=== PATIENT | female | born 1985 | race African-American/Black ===

== ENCOUNTER 2020-06-22 12:31 | Inpatient (IN) ==
[2020-06-22] MEDS ORDERED: LABETALOL 100 MG TABLET ONE (12:48)
[2020-06-22] MEDS ORDERED: LABETALOL 100 MG TABLET PO ONE (12:49)
[2020-06-22] MEDS ORDERED: hydrALAZINE 20 MG/1 ML VIAL ONE (12:50)
[2020-06-22] MEDS: hydrALAZINE 20 MG/1 ML VIAL IV PRN ×2 (13:01→13:16)
[2020-06-22 13:03] LABS: Basophils # 0.1 10*3/uL (0.0-0.2); Basophils % 0.8 % (0.0-0.8); Eosinophils # 0.1 10*3/uL (0.0-0.87); Hematocrit 36.8 VOL% (35.7-47.0); Hemoglobin 11.7 GM/DL (12.0-16.0); Immature Granulocytes % 0.4 %; Immature Granulocytes Absolute 0.04 #; Lymphocytes # 4.5 10*3/uL (1.4-4.0); Lymphocytes % 42.8 % (21.3-54.2); Mean Corpuscular HGB Conc 31.8 GM/DL (32-36); Mean Platelet Volume 11.8 FL (9.6-12.0); Monocytes % 6.4 % (1.7-12.7); NRBC # 0.02 10*3/uL; Neutrophils % 48.6 % (38.7-73.9); Platelet Count 228 T/CUMM (130-400); Red Blood Count 4.28 MC/CUMM (3.8-5.5); Red Cell Distribution Width 14.7 % (9.3-17.3); White Blood Count 10.5 T/CUMM (4-12)
[2020-06-22 13:09] LABS: Bilirubin,Urine Negative (Negative); Blood, Urine Small mg/dL (Negative); Glucose,Urine (UA) Negative (Negative); Hyaline Casts,Urine 14 /LPF (0-3); Ketones,Urine Negative (Negative); Mucus,Urine Occasional /LPF (Occasional); Nitrite,Urine Negative (Negative); Protein,Urine >=500 MG/DL; RBC,Urine 71 /HPF (0-4); Squamous Epithelial Cell,Urine Occasional /HPF (0-10); Urine Appearance Slightly Hazy (Clear); Urine Color Yellow (Yellow); Urine Specific Gravity 1.019 (1.001-1.035); Urine Urobilinogen < 2.0 EU/DL (0.2-1.0); WBC,Urine 4 /HPF (0-6)
[2020-06-22] MEDS ORDERED: FAMOTIDINE 20 MG/2 ML VIAL IV ONE (13:15)
[2020-06-22] MEDS ORDERED: ePHEDrine 50 MG/ML VIAL IV PRN (13:15)
[2020-06-22] MEDS ORDERED: PROMETHAZINE 25 MG/1 ML VIAL IM ONE (13:15)
[2020-06-22] MEDS ORDERED: LACTATED RINGERS 1,000 ML IV ONE (13:15)
[2020-06-22] MEDS ORDERED: ONDANSETRON 4 MG/2 ML VIAL IV ONE (13:15)
[2020-06-22] MEDS ORDERED: ceFAZolin 2,000 MG in PREMIX 1 EACH IV ONE (13:15)
[2020-06-22] MEDS ORDERED: hydrOXYzine HCL 25 MG/1 ML VIAL IM PRN (13:15)
[2020-06-22] MEDS ORDERED: diphenhydrAMINE 50 MG/1 ML VIAL IV PRN ×2 (13:15)
[2020-06-22] MEDS ORDERED: CITRIC ACID/SODIUM CITRATE 30 ML UDCUP PO ONE (13:15)
[2020-06-22] MEDS ORDERED: MAGNESIUM SULF RIDER 100 ML IV ONE ×2 (13:16→13:20)
[2020-06-22 13:17] LABS: INR 0.9; PT Patient Result 9.8 SECS (9.8-11.9); Partial Thromboplastin Time 29.6 SECS (23.9-33.8)
[2020-06-22] MEDS ORDERED: miSOPROStoL 200 MCG TABLET ONE (13:23)
[2020-06-22] MEDS ORDERED: TRANEXAMIC ACID 1,000 MG/10 ML VIAL ONE (13:23)
[2020-06-22] MEDS ORDERED: OXYTOCIN/LR 20 UNIT/1,000 ML BAG IV ONE ×3 (13:24→14:45)
[2020-06-22] MEDS ORDERED: METHYLERGONOVINE 0.2 MG/1 ML AMP ONE (13:24)
[2020-06-22] MEDS ORDERED: CARBOPROST TROMETHAMINE 250 MCG/ML AMP IM ONE (13:24)
[2020-06-22 13:27] LABS: Eosinophils 1 % (0-10); Lymphocytes 37 % (20-55); Reactive Lymphocytes Few; Segmented Neutrophils 52 % (50-85); Total Cells Counted 100
[2020-06-22 13:28] LABS: Albumin 2.2 G/DL (3.4-5.0); Anisocytosis Slight; Bilirubin,Direct 0.14 MG/DL (0.0-0.20); Bilirubin,Total 0.6 MG/DL (0.2-1.0); Calcium 8.4 MG/DL (8.5-10.1); Hypochromasia Slight; Platelet Estimate Adequate; Polychromasia Few; Potassium 4.7 MMOL/L (3.5-5.1)
[2020-06-22] MEDS ORDERED: propofoL 200 MG/20 ML VIAL IV ONE (13:35)
[2020-06-22] MEDS ORDERED: SUCCINYLCHOLINE 200 MG/10 ML VIAL ONE (13:35)
[2020-06-22] MEDS ORDERED: fentaNYL 100 MCG/2 ML VIAL ONE (13:36)
[2020-06-22] MEDS ORDERED: MIDAZOLAM 2 MG/2 ML VIAL ONE (13:36)
[2020-06-22] MEDS ORDERED: ONDANSETRON 4 MG/2 ML VIAL ONE (13:43)
[2020-06-22] MEDS ORDERED: FUROSEMIDE 20 MG/2 ML VIAL ONE ×2 (13:44)
[2020-06-22] MEDS ORDERED: ceFAZolin 1,000 MG VIAL ONE (13:54)
[2020-06-22] MEDS ORDERED: SEVOFLURANE 1 UNIT/15 MINUTE INH ONE (13:54)
[2020-06-22] MEDS ORDERED: PHENYLEPHRINE 1 MG/10 ML SYRINGE IV ONE (13:55)
[2020-06-22 14:00] LABS: Cord Arterial Blood HCO3 20.8 MMOL/L; Cord Venous Blood PCO2 45.8 MMHG; Cord Venous Blood PO2 22.3
[2020-06-22] MEDS ORDERED: ACETAMINOPHEN 1,000 MG/100 ML VIAL IV ONE (14:00)
[2020-06-22] MEDS ORDERED: WITCH HAZEL PADS 100/JAR TOP PRN (14:24)
[2020-06-22] MEDS ORDERED: DIPH/TET/ACEL PERT BOOSTER VACCINE 0.5 ML VIAL IM ONE (14:24)
[2020-06-22] MEDS ORDERED: RHO(D) IMMUNE GLOBULIN 300 MCG SYRINGE IM ONE (14:24)
[2020-06-22] MEDS ORDERED: HYDROCORTISONE 2.5% RECTAL CREAM 30 GM TUBE TOP PRN (14:24)
[2020-06-22] MEDS ORDERED: IBUPROFEN 800 MG TABLET PO PRN (14:24)
[2020-06-22] MEDS ORDERED: ACETAMINOPHEN 325 MG TABLET PO PRN (14:24)
[2020-06-22] MEDS ORDERED: BENZOCAINE 20%/MENTHOL 0.5% SPRAY 56 GM CAN TOP PRN (14:24)
[2020-06-22] MEDS ORDERED: ONDANSETRON 4 MG/2 ML VIAL IV PRN (14:24)
[2020-06-22] MEDS ORDERED: LANOLIN 50% CREAM 0.3 OZ TUBE TOP PRN (14:24)
[2020-06-22] MEDS ORDERED: BISACODYL 10 MG SUPP RECTAL PRN (14:24)
[2020-06-22] MEDS ORDERED: MEASLES/MUMPS/RUBELLA VACCINE 0.5 ML VIAL SUBCUT ONE (14:24)
[2020-06-22 14:27] LABS: Barbiturates Screen,Urine Negative (Negative); Benzodiazepines Screen,Urine Negative (Negative); Cannabinoid Screen,Urine Negative (Negative); Opiate Screen,Urine Negative (Negative); Phencyclidine Screen,Urine Negative (Negative)
[2020-06-22] MEDS ORDERED: KETOROLAC 60 MG/2 ML VIAL IM PRN (14:44)
[2020-06-22] MEDS ORDERED: KETOROLAC 30 MG/1 ML VIAL IV PRN (14:50)
[2020-06-22] MEDS ORDERED: MAGNESIUM SULF DRIP 40 GM/1,000 ML ML IV ONE (14:54)
[2020-06-22] MEDS ORDERED: FUROSEMIDE 40 MG/4 ML VIAL IV ONE (15:07)
[2020-06-22] MEDS ORDERED: METOPROLOL TARTRATE 5 MG/5 ML VIAL IV ONE (15:08)
[2020-06-22] MEDS: MEPERIDINE 50 MG/1 ML VIAL IV PRN ×2 (15:20→20:32)
[2020-06-22] MEDS ORDERED: MAGNESIUM SULF DRIP 40 GM/1,000 ML ML IV SCH (15:30)
[2020-06-22 15:42] LABS: Basophils # 0.1 10*3/uL (0.0-0.2); Basophils % 0.8 % (0.0-0.8); Eosinophils # 0.1 10*3/uL (0.0-0.87); Eosinophils % 0.6 % (0.00-10.9); Hemoglobin 11.8 GM/DL (12.0-16.0); Immature Granulocytes % 1.3 %; Immature Granulocytes Absolute 0.19 #; Lymphocytes # 4.1 10*3/uL (1.4-4.0); Lymphocytes % 27.9 % (21.3-54.2); Mean Corpuscular HGB Conc 32.8 GM/DL (32-36); Mean Corpuscular Volume 86.5 FL (87-102); Mean Platelet Volume 12.3 FL (9.6-12.0); Monocytes % 4.2 % (1.7-12.7); NRBC # 0.03 10*3/uL; Neutrophils % 65.2 % (38.7-73.9); Platelet Count 207 T/CUMM (130-400); Red Blood Count 4.16 MC/CUMM (3.8-5.5); Red Cell Distribution Width 14.8 % (9.3-17.3); White Blood Count 14.6 T/CUMM (4-12)
[2020-06-22] MEDS: niCARdipine INJ 25 MG in SODIUM CHLORIDE 0.9% 240 ML IV PRN ×2 (15:42→22:13)
[2020-06-22] MEDS: cloNIDine 0.1 MG TABLET PO SCH ×2 (15:45→23:22)
[2020-06-22] MEDS: METOPROLOL TARTRATE 50 MG TABLET PO SCH ×2 (15:51→20:42)
[2020-06-22 15:59] LABS: Calcium 8.5 MG/DL (8.5-10.1); Osmolality,Calculated 266.2 MOS/KG (273-304)
[2020-06-22] MEDS: FAMOTIDINE 20 MG/2 ML VIAL IV SCH (16:23)
[2020-06-22 16:29] LABS: Anisocytosis Slight; Eosinophils 1 % (0-10); Hypochromasia Slight; Lymphocytes 29 % (20-55); Nucleated Red Blood Cells 1 (0-5); Platelet Estimate Adequate; Polychromasia Few; Segmented Neutrophils 67 % (50-85); Total Cells Counted 100
[2020-06-22] MEDS: DOCUSATE SODIUM 100 MG CAPSULE PO SCH (20:41)
[2020-06-23] MEDS: LACTATED RINGERS 1,000 ML IV SCH ×3 (00:50→08:11)
[2020-06-23] MEDS: MEPERIDINE 50 MG/1 ML VIAL IV PRN ×2 (00:53→05:00)
[2020-06-23] MEDS: FAMOTIDINE 20 MG/2 ML VIAL IV SCH ×2 (03:40→15:41)
[2020-06-23 04:02] LABS: Basophils # 0.1 10*3/uL (0.0-0.2); Basophils % 0.5 % (0.0-0.8); Eosinophils % 0.3 % (0.00-10.9); Hematocrit 32.5 VOL% (35.7-47.0); Hemoglobin 10.2 GM/DL (12.0-16.0); Immature Granulocytes % 0.4 %; Immature Granulocytes Absolute 0.04 #; Lymphocytes % 40.1 % (21.3-54.2); Mean Corpuscular HGB Conc 31.4 GM/DL (32-36); Mean Corpuscular Volume 87.6 FL (87-102); Mean Platelet Volume 11.7 FL (9.6-12.0); Monocytes % 7.3 % (1.7-12.7); Neutrophils % 51.4 % (38.7-73.9); Platelet Count 182 T/CUMM (130-400); Red Blood Count 3.71 MC/CUMM (3.8-5.5); Red Cell Distribution Width 14.6 % (9.3-17.3); White Blood Count 9.9 T/CUMM (4-12)
[2020-06-23 04:15] LABS: Calcium 7.2 MG/DL (8.5-10.1); Osmolality,Calculated 272.7 MOS/KG (273-304); Potassium 3.9 MMOL/L (3.5-5.1)
[2020-06-23 04:21] LABS: Hypochromasia Slight; Platelet Estimate Adequate
[2020-06-23] MEDS: cloNIDine 0.1 MG TABLET PO SCH ×3 (08:10→23:46)
[2020-06-23] MEDS: DOCUSATE SODIUM 100 MG CAPSULE PO SCH ×2 (08:10→21:27)
[2020-06-23] MEDS: METOPROLOL TARTRATE 50 MG TABLET PO SCH ×2 (08:10→21:27)
[2020-06-23] MEDS: hydrALAZINE 20 MG/1 ML VIAL IV PRN (12:02)
[2020-06-23] MEDS: oxyCODONE/ACETAMINOPHEN 5-325 MG TABLET PO PRN (12:33)
[2020-06-24] MEDS: FAMOTIDINE 20 MG/2 ML VIAL IV SCH ×2 (04:09→21:06)
[2020-06-24] MEDS: oxyCODONE/ACETAMINOPHEN 5-325 MG TABLET PO PRN ×2 (05:49→23:14)
[2020-06-24] MEDS: cloNIDine 0.1 MG TABLET PO SCH ×3 (08:30→23:11)
[2020-06-24] MEDS: DOCUSATE SODIUM 100 MG CAPSULE PO SCH ×2 (09:41→21:04)
[2020-06-24] MEDS: MULTIVITAMIN (PRENATAL) TABLET PO SCH (09:41)
[2020-06-24] MEDS: METOPROLOL TARTRATE 50 MG TABLET PO SCH ×2 (09:41→21:05)
[2020-06-24] MEDS: MAGNESIUM HYDROXIDE SUSP 30 ML UDCUP PO PRN ×2 (09:42→21:04)
[2020-06-24] MEDS: SIMETHICONE CHEW 80 MG TABLET PO PRN (09:42)
[2020-06-24] MEDS: hydrALAZINE 20 MG/1 ML VIAL IV PRN (17:14)
[2020-06-25] MEDS: hydrALAZINE 20 MG/1 ML VIAL IV PRN (00:18)
[2020-06-25 06:41] LABS: Basophils # 0.1 10*3/uL (0.0-0.2); Basophils % 0.7 % (0.0-0.8); Eosinophils # 0.4 10*3/uL (0.0-0.87); Eosinophils % 4.3 % (0.00-10.9); Hematocrit 32.5 VOL% (35.7-47.0); Hemoglobin 10.1 GM/DL (12.0-16.0); Immature Granulocytes % 0.3 %; Immature Granulocytes Absolute 0.03 #; Lymphocytes # 4.1 10*3/uL (1.4-4.0); Lymphocytes % 45.5 % (21.3-54.2); Mean Corpuscular HGB Conc 31.1 GM/DL (32-36); Mean Corpuscular Volume 88.8 FL (87-102); Mean Platelet Volume 11.1 FL (9.6-12.0); Monocytes % 8.6 % (1.7-12.7); Neutrophils % 40.6 % (38.7-73.9); Platelet Count 184 T/CUMM (130-400); Red Blood Count 3.66 MC/CUMM (3.8-5.5); Red Cell Distribution Width 15.2 % (9.3-17.3)
[2020-06-25] MEDS: cloNIDine 0.1 MG TABLET PO SCH (06:55)
[2020-06-25 06:59] LABS: Hypochromasia 1+; Microcytosis 1+; Platelet Estimate Adequate
[2020-06-25 07:04] LABS: Calcium 8.5 MG/DL (8.5-10.1); Osmolality,Calculated 278.4 MOS/KG (273-304); Potassium 4.4 MMOL/L (3.5-5.1)
[2020-06-25] MEDS: DOCUSATE SODIUM 100 MG CAPSULE PO SCH ×2 (08:24→20:08)
[2020-06-25] MEDS: MULTIVITAMIN (PRENATAL) TABLET PO SCH (08:28)
[2020-06-25] MEDS: METOPROLOL TARTRATE 25 MG TABLET PO SCH (08:29)
[2020-06-25] MEDS: MAGNESIUM HYDROXIDE SUSP 30 ML UDCUP PO PRN (08:29)
[2020-06-25] MEDS: FAMOTIDINE 20 MG TABLET PO SCH ×2 (12:48→21:15)
[2020-06-25] MEDS ORDERED: METOPROLOL TARTRATE 50 MG TABLET PO SCH (19:00)
[2020-06-25] MEDS: oxyCODONE/ACETAMINOPHEN 5-325 MG TABLET PO PRN (20:09)
[2020-06-25] MEDS: SIMETHICONE CHEW 80 MG TABLET PO PRN (20:09)
[2020-06-26] MEDS: hydrALAZINE 20 MG/1 ML VIAL IV PRN (01:00)
[2020-06-26 06:33] LABS: Basophils # 0.1 10*3/uL (0.0-0.2); Basophils % 0.6 % (0.0-0.8); Eosinophils # 0.3 10*3/uL (0.0-0.87); Eosinophils % 3.8 % (0.00-10.9); Hematocrit 29.2 VOL% (35.7-47.0); Hemoglobin 9.4 GM/DL (12.0-16.0); Immature Granulocytes % 0.3 %; Immature Granulocytes Absolute 0.03 #; Lymphocytes # 3.2 10*3/uL (1.4-4.0); Lymphocytes % 36.6 % (21.3-54.2); Mean Corpuscular HGB Conc 32.2 GM/DL (32-36); Mean Corpuscular Volume 86.9 FL (87-102); Mean Platelet Volume 11.4 FL (9.6-12.0); Monocytes % 9.1 % (1.7-12.7); Neutrophils % 49.6 % (38.7-73.9); Platelet Count 179 T/CUMM (130-400); Red Blood Count 3.36 MC/CUMM (3.8-5.5); Red Cell Distribution Width 14.8 % (9.3-17.3); White Blood Count 8.7 T/CUMM (4-12)
[2020-06-26 07:01] LABS: Eosinophils 2 % (0-10); Lymphocytes 33 % (20-55); Platelet Estimate Normal; Segmented Neutrophils 58 % (50-85); Total Cells Counted 100
[2020-06-26 07:06] LABS: Anisocytosis 2+; Calcium 8.4 MG/DL (8.5-10.1); Osmolality,Calculated 275.5 MOS/KG (273-304); Potassium 4.1 MMOL/L (3.5-5.1)
[2020-06-26 07:16] VITALS: BP 153/88
[2020-06-26] MEDS: METOPROLOL TARTRATE 25 MG TABLET PO SCH (09:20)
[2020-06-26] MEDS: DOCUSATE SODIUM 100 MG CAPSULE PO SCH (09:20)
[2020-06-26] MEDS: MULTIVITAMIN (PRENATAL) TABLET PO SCH (09:22)
[2020-06-26] MEDS: FAMOTIDINE 20 MG TABLET PO SCH (09:23)
== END 2020-06-26 12:05 | disposition home or self-care (01) | DRG 786 ==
LOC: N.LDOUT 12:31 → N.LD 12:33 → N.ICU 14:05 → N.OB 06-23 11:30
PROVIDERS: ADMIT Pediatrics Neonatal-Perinatal Medicine; ATTEND Specialist
PROC: LDCSECT (ICD-10-PCS; 2020-06-22 13:15)